=== PATIENT | male | born 1950 | race Caucasian/White ===

== ENCOUNTER 2017-05-13 09:19 | Day surgery (SDC) | payer MEDICARE, MEDICAID ==
[~2017-05-13] VITALS: Ht 180.3 cm; Wt 108.0 kg
[2017-05-13] VITALS (8 sets, daily range): BP systolic 97–180; BP diastolic 56–105; PULSE 67–95; RESP 16–20; TEMP 97.4–97.5; O2SAT 91–97
[2017-05-13] MEDS ORDERED: [UNRECOGNIZED DRUG - CODE] PO (09:48)
[2017-05-13] MEDS ORDERED: DOLU1TAB PO (09:48)
[2017-05-13] MEDS ORDERED: PIOG30TA4 PO (09:48)
[2017-05-13] MEDS ORDERED: QUET1TAB10 PO (09:48)
[2017-05-13] MEDS ORDERED: VALA1TAB PO (09:48)
[2017-05-13] MEDS ORDERED: ROSU1TAB4 PO (09:48)
[2017-05-13] MEDS ORDERED: FURO20TA PO (09:48)
[2017-05-13] MEDS ORDERED: DOCU100C PO (09:48)
[2017-05-13] MEDS ORDERED: XIFA550T4 PO (09:48)
[2017-05-13] MEDS ORDERED: TAMS0.4C4 PO (09:48)
[2017-05-13] MEDS ORDERED: ARIP1TAB12 PO (09:48)
[2017-05-13] MEDS ORDERED: ASPI81TA11 PO (09:48)
[2017-05-13 10:25] LABS: INTERNATIONAL NORMALIZED RATIO 0.9 RATIO; PROTHROMBIN TIME - PATIENT 10.4 SEC (9.8-11.6)
[2017-05-13] MEDS ORDERED: LIDOCAINE 1%/EPINEPHrine 1:100,000 SOLN 20 ML VIAL ONE (10:39)
[2017-05-13] MEDS ORDERED: SODIUM CHLOR 0.9% 1000 ML IV SCH (11:00)
[2017-05-13] MEDS ORDERED: MIDAZOLAM HCL 2 MG/2 ML VIAL ONE (11:14)
--- NOTE | 2017-05-13 14:31 | RADRPT ---
EXAM DATE/TIME: 05/13/2017 11:19 [place] COMPARISON: No previous studies available for comparison. INDICATIONS : Elevated liver enzymes. SEDATION TIME: 10 minutes BIOPSY SITE: liver MEDICATION(S): 1.) 2 mg midazolam (Versed) IV 2.) 100 mcg fentanyl (Sublimaze) IV DEVICE(S): 1.) 18 gauge Temno core biopsy needle 15cm MEDICAL HISTORY : None. SURGICAL HISTORY : None. ENCOUNTER: Initial ACUITY: 1 day PAIN SCORE: 0/10 LOCATION: Right lateral abdomen A total of one core specimen(s) were obtained and sent to the laboratory for pathologic evaluation. PROCEDURE: 1. CT guided liver biopsy. 2. Conscious sedation with continuous EKG and oximetry monitoring. Prior to the procedure informed consent was obtained. Any appropriate prior imaging studies were rev iewed. Using automated exposure control and adjustment of the mA and/or kV according to patient size, radiat ion dose was kept as low as reasonably achievable to obtain optimal diagnostic quality images. DICOM format image data is available electronically for review and comparison. The site was prepped in a sterile fashion. Full sterile technique was used, including cap, mask, william rile gloves and gown and a large sterile sheet. Hand hygiene and 2% chlorhexidine and/or betadine/al cohol prep was utilized per protocol for cutaneous antisepsis. The skin and subcutaneous tissues wer e infiltrated with local anesthetic solution. With CT guidance the previously identified target was localized. Biopsy was performed using the presc ribed needle as above. Adequate hemostasis was obtained with compression at the puncture site. Follow-up CT scan reveals no hemorrhage. The patient tolerated the procedure well and there were no complications. The patient was returned to the Radiology Outpatient Unit in stable condition. CONCLUSION: Uncomplicated CT guided biopsy. Tj Cowan MD on May 13, 2017 at 14:29 Board Certified Radiologist. This report was verified electronically.
== END 2017-05-13 15:35 | disposition home or self-care (01) ==
LOC: HRAD 09:19 → HRIP 09:23 → HRAD 15:35
PROVIDERS: ATTEND Specialist
DX: R74.8 Abnormal levels of other serum enzymes (principal); B20 Human immunodeficiency virus [HIV] disease; D64.9 Anemia, unspecified
CPT/HCPCS: 47000; 77012; 85610; 85730; 88307; 88313; J2250; J3010